=== PATIENT | female | born 1970 | race Hispanic/Latino ===

== ENCOUNTER 2020-08-03 11:00 | Outpatient (RCR) | payer MEDICARE | END 2020-08-06 | LOC: PT 11:00 | PROVIDERS: ATTEND Specialist | DX: M75.42 Impingement syndrome of left shoulder (principal) ==

== ENCOUNTER 2020-08-30 17:00 | Outpatient (RCR) | payer MEDICARE | END 2020-09-03 | LOC: PT 17:00 | PROVIDERS: ATTEND Specialist | DX: M75.42 Impingement syndrome of left shoulder (principal) | CPT/HCPCS: 97139 ==

== ENCOUNTER 2024-05-20 14:19 | Emergency (ER) | payer MEDICARE, OTHER ==
[~2024-05-20] VITALS: Ht 152.4 cm; Wt 63.5 kg
[2024-05-20 14:45] VITALS: PULSE 77; RESP 18; TEMP 98.4; O2SAT 96
[2024-05-20] MEDS: MECLIZINE HCL 12.5 MG TAB PO ONE (15:22)
[2024-05-20] MEDS ORDERED: MECLIZINE HCL12.5 MG PO (15:35)
== END 2024-05-20 16:08 | disposition home or self-care (01) ==
LOC: ER 14:56
DX: R42 Dizziness and giddiness (principal); G40.909 Epilepsy, unspecified, not intractable, without status epilepticus
CPT/HCPCS: 99282; J8597

== ENCOUNTER 2024-05-27 14:41 | Emergency (ER) | payer MEDICARE, OTHER ==
[~2024-05-27 14:41] MED LIST: MECLIZINE HCL12.5 MG PO
== END 2024-05-27 19:25 | disposition short-term general hospital (02) ==
LOC: ER 15:28
DX: R42 Dizziness and giddiness (principal)